=== PATIENT | male | born 2000 | race Caucasian/White ===

== ENCOUNTER 2018-07-14 21:42 | Emergency (ER) | payer BC, OTHER ==
--- NOTE | 2018-07-14 21:45 | EDPHY ---
H & P Time Seen by Provider: 07/14/18 21:45 Medical Decision Making ED Course/Re-evaluation: CHIEF COMPLAINT: HISTORY OF PRESENT ILLNESS: must have 4 elements: Location, Quality, Severity , Duration, Timing, Context, Modifying Factors, Associated Signs and Symptoms REVIEW OF SYSTEMS: A comprehensive 10 system review of systems is otherwise negative aside from elements mentioned in the history of present illness and medical decision making. PHYSICAL EXAM: HR, BP, O2 Sat, RR. Temp noted General Appearance: Alert, well hydrated, appropriate, and non-toxic appearing. Head: Atraumatic without scalp tenderness or obvious injury Eyes: Pupils equal, round, reactive to light and accommodation, EOMI, no trauma , no injection. Ears: Clear bilaterally, no perforation, normal landmarks Nose: Atraumatic, no rhinorrhea, clear. Throat: There is no erythema or exudates, no lesions, normal tonsils, mucus membranes moist. Neck: Supple, 2+ carotid upstroke, nontender, no lymphadenopathy. Respiratory: No retractions, no distress, no wheezes, and no accessory muscle use. Lungs are clear to auscultation bilaterally. Cardiovascular: Regular rate and rhythm, no murmurs, rubs, or gallops. Bilateral carotid, radial, dorsalis pedis, and posterior tibial pulses intact. Good capillary refill all extremities. Gastrointestinal: Abdomen is soft, nontender, non-distended, no masses, no rebound, no guarding, no peritoneal signs. Musculoskeletal: Normal active ROM of all extremities, atraumatic. Neurological: Alert, appropriate, and interactive. The patient has normal DTRs and non-focal cranial nerves, motor, sensory, and cerebellar exam. Skin: No rashes, good turgor, no nodules on palpation. Past medical history: Past surgical history: Family history: Social history: DIAGNOSTICS/PROCEDURES/CRITICAL CARE TIME: DIFFERENTIAL DIAGNOSIS: MEDICAL DECISION MAKING: Departure - Departure Referrals: JATIN BOOTHE [Other] - As per Instructions
--- NOTE | 2018-07-14 21:47 | EDPHY ---
General Time Seen by Provider: 07/14/18 21:45 Narrative: CLINICAL IMPRESSION: Left shoulder dislocation ASSESSMENT/PLAN: Patient is a 18-year-old male with a history of bipolar disorder and multiple shoulder dislocations who presents to the emergency department with acute left shoulder dislocation. Patient is uncomfortable appearing however not toxic- appearing. Physical exam reveals loss of deltoid contour, consistent with dislocation; x-ray confirmed anterior dislocation. The patient was given fentanyl and Valium, his shoulder was reduced without complication. Post reduction film revealed reduction of the joint in anatomic position, he remained neurovascularly intact. There was no evidence of fracture, compartment syndrome or neurovascular compromise. Patient has never been evaluated by Orthopedic surgery, referral given. Return precautions discussed. DIFFERENTIAL DX: Differential diagnosis including but not limited to and in no particular order dislocation, fracture, muscle strain ED PROCEDURES: Procedure: Dislocation reduction. The shoulder was reduced in the usual fashion without complications. Post reduction the patient's neurovascular exam is normal. Post reduction x-ray demonstrates reduction of the joint to the anatomic position. The procedure was performed by myself. ED COURSE: 2151: Case discussed with Dr. Tafoya 2215: Shoulder reduced without difficulty. 2240: Repeat x-ray revealed adequate relocation. 2245: On repeat examination the patient reports he is feeling much better, he denies any pain. He denies any further tingling sensation in his hand. Patient remains neurovascularly intact. Discussed importance ortho follow-up. CHIEF COMPLAINT: Left shoulder pain, possible dislocation HPI: Patient is a 18-year-old male with a history of bipolar disorder who presents to the emergency department with acute left shoulder pain. Patient reports he started to fall down the stairs, he reached out his left arm and caught himself on the banister. He immediately experienced pain and obvious deformity to his left shoulder. He did not fall to the ground or fall down the stairs. Complains of some mild tingling of his hand in digit. He did not hit his head, there was no loss of consciousness. He denies any neck or back pain. He does have a history of bilateral shoulder dislocations in the past. No history of shoulder surgery. No other injury or complaint. PMH: Bipolar Pertinent Past Surgical History: Denies Family History: Not contributory Social History: Sober living REVIEW OF SYSTEMS: All other systems negative Constitutional: No fever, no chills, appetite change. Eyes: No discharge, vision change ENT: No sore throat, congestion, ear pain. Cardiovascular: No chest pain, no palpitations. Respiratory: No cough, no shortness of breath. Gastrointestinal: No abdominal pain, no vomiting, diarrhea. Genitourinary: No hematuria, dysuria, flank pain. Musculoskeletal: Left shoulder pain. Skin: No rashes, color change. Neurological: No headache, dizziness, weakness. PHYSICAL EXAM: General Appearance: Well-appearing, no acute distress and not toxic-appearing. HENT: Normocephalic, atraumatic. Bilateral external ears are normal. Bilateral tympanic membranes are normal with pearly solis reflex. Nares are clear, mucosa is pink. Oropharynx is clear, uvula is midline. There is no tonsillar enlargement or exudate. The dentition is normal. Eyes: PERRLA, EOMI. Conjunctiva pink, no pallor or injection Respiratory: There are no retractions, lungs are clear to auscultation. Cardiac: Regular rate and rhythm, no murmurs or gallops. Gastrointestinal: Abdomen is soft, nontender, bowel sounds normal, no masses/ hernia, no rigidity, guarding or focal peritoneal findings. Neurological: Alert and oriented x 3, CN 2-12 grossly intact, normal sensation. Skin: Warm, dry, no rashes. Upper Extremities: Right upper extremity is nontender with full range of motion. Left shoulder with tenderness to palpation, loss of deltoid contour consistent with anterior dislocation. No clavicle tenderness or deformity. No increased warmth on palpation. No obvious abrasions, ecchymosis. Limited ROM to flexion/extension/abduction/adduction, pain elicited with all movement. 2+ radial pulses with capillary refill < 2 seconds. 5/5 strength at fingers, wrist, elbow. Resisted wrist extension (radial nerve): normal. Resisted thumb opposition ( median nerve): normal. Resisted finger abduction (ulnar nerve): normal. Sensation intact throughout. Neck: FROM intact to flexion/extension/rotational movement. No midline tenderness. No step-off or deformity. Back: No step-off, palpable bony abnormality, edema, erythema or ecchymosis of the cervical, thoracic or lumbar spines. Thoracic and lumbar spines with no midline or paraspinal muscle tenderness to palpation. Full range of motion of all spines. 5/5 and equal strength of the UEs and LEs bilaterally including shoulder shrug ( except right shoulder as mentioned above). Pulses: DP and PT pulses bilaterally. Sensation intact and symmetric to light touch from face, UEs and LEs bilaterally. Psychiatric: Mood and affect are normal, there is no agitation. MEDICAL DECISION MAKING: Patient by myself and Dr. Tafoya. Diagnosis: Left anterior shoulder dislocation. Summary: See Assessment and Plan for summary of ED visit Independent visualization of images, tracing, or specimens: Yes. Decision to obtain medical records or history from someone other than the patient: Yes, friend Review / Summarize previous medical records: Yes Discussed patient with another provider: Yes, Dr. Tafoya Patient Progress: Stable, discharge. - Diagnostics Imaging Results: Imaging Impressions Shoulder X-Ray 07/14/18 21:47 Impression: Anterior dislocation left shoulder glenohumeral joint. Shoulder X-Ray 07/14/18 22:20 Impression: Reduction of the anterior dislocation seen previously. Hill-Sachs deformity. - Objective Vital Signs: Initial Vital Signs Temperature (C) 36.8 C 07/14/18 21:46 Heart Rate 113 H 07/14/18 21:46 Respiratory Rate 18 07/14/18 21:46 Blood Pressure 166/98 H 07/14/18 21:46 O2 Sat (%) 96 07/14/18 21:46 O2 Delivery Mode Room Air Allergies/Adverse Reactions: Sulfa (Sulfonamide Antibiotics) Allergy (Verified 07/14/18 21:48) Home Medications: Medication Instructions Recorded ERICA-D 12 HOUR TABLET 07/14/18 Concerta 07/14/18 Singulair 07/14/18 lamOTRIGine 07/14/18 Medications Given: Discontinued Medications Diazepam (Valium) 5 mg IVP EDNOW ONE Stop: 07/14/18 21:54 Last Admin: 05/12/19 22:17 Dose: 5 mg Fentanyl (Sublimaze) 50 mcg IVP ONCE ONE Stop: 07/14/18 21:54 Last Admin: 07/14/18 21:58 Dose: 50 mcg Departure - Departure Disposition: Home, Routine, Self-Care Clinical Impression: Shoulder dislocation Qualifiers: Encounter type: initial encounter Laterality: left Qualified Code(s): S43.005A - Unspecified dislocation of left shoulder joint, initial encounter Condition: Good Instructions: Shoulder Dislocation (ED) Additional Instructions: DISCHARGE INSTRUCTIONS FROM YOUR PROVIDER Thank you for visiting our emergency department today. Please keep in mind that discharge from the emergency department does not mean that there is nothing wrong - it simply means that we have not identified an emergency condition that requires further evaluation or treatment in the hospital. You should always plan to follow up with primary care for re-evaluation of your condition in the next 2-3 days. If you have been referred to a specialist, please call as soon as possible ( today or tomorrow) to schedule your follow up appointment at the appropriate time; please follow-up with Orthopedic surgery. Rest, no heavy lifting, pushing, pulling, carrying with the affected arm. Apply ice on and off to the painful area, whichever feels better. Wear the sling as applied on and off as applied until follow-up. Gentle range of motion exercises several times daily to prevent your shoulder from stiffening up -- pendulum exercises as we discussed. Avoid prolonged immobilization as we discussed as shoulder injuries are prone to "frozen shoulder" which is a significant complication and requires intensive physical therapy to rehabilitate. For pain control: You may take Tylenol, I recommend 500-1000 mg every 6-8 hours as needed. Take with food and a full glass of water. Stop taking if this is upsetting you stomach. Do not exceed 4000 mg in a 24 hr period. You may also take ibuprofen, recommend 400 mg every 6 hr. Take with food and a full glass of water. Stop taking if this upsets your stomach. Do not exceed 2400 mg in a 24 hr period. Continue your regular medication as prescribed. Call and schedule with a primary care provider for a follow-up appointment and to establish care for your primary care needs. Return for increased or unmanageable pain, inability to move the shoulder or neck, fever, chills, redness, warmth, swelling, numbness, tingling or weakness of the arm, loss of mink farmer strength, coolness of the fingertips, chest pain, shortness of breath, or for any other new, worsening or worrisome symptoms. People present with illnesses and injuries in different ways, and it is always possible that we have missed something. Again, thank you for choosing our emergency department. We hope that you feel better. Referrals: JATIN BOOTHE [Other] - As per Instructions Isauro Farooq MD [Medical Doctor] - 2-3 days, call for appt.
[2018-07-14] MEDS ORDERED: DIAZEPAM 10 MG/2 ML SYR IVP ONE (21:53)
[2018-07-14] MEDS ORDERED: fentaNYL 100 MCG/2 ML INJ IVP ONE (21:53)
[2018-07-14 22:52] VITALS: BP 140/74
== END 2018-07-14 22:51 | disposition home or self-care (01) ==
PROC: 0RSKXZZ Reposition Left Shoulder Joint, External Approach (ICD-10-PCS; principal; 2018-07-14)
DX: S43.005A Unspecified dislocation of left shoulder joint, initial encounter (principal); W10.8XXA Fall (on) (from) other stairs and steps, initial encounter
CPT/HCPCS: 96374; A4565; J3010; J3360